=== PATIENT | female | born 1995 | race Caucasian/White ===

== ENCOUNTER 2022-06-28 04:49 | Inpatient (IN) | payer OTHER ==
[2022-06-28] MEDS ORDERED: BETAMET ACET-BETAMETH SOD PHOS 6 MG/ML MDV IM SCH (05:15)
[2022-06-28] MEDS ORDERED: TERBUTALINE 1 MG/ML VIAL SQ STA (05:26)
[2022-06-28] MEDS: LACTATED RINGERS 1,000 ML IV SCH ×3 (05:35→09:01)
[2022-06-28 05:47] LABS: Basophils % (A) 0 %; Eosinophils % (A) 0 %; HCT 34.2 % (34.0-46.0); HGB 12.3 gm/dL (11.4-16.0); Lymphocytes # (A) 1.3 k/uL (1.0-4.8); Lymphocytes % (A) 7 %; MCH 31.5 pg (25.0-35.0); MCHC 36.1 g/dL (31.0-37.0); MCV 87.3 fL (80.0-100.0); Mean Platelet Volume 8.5; Monocytes # (A) 0.9 k/uL (0-1.0); Monocytes % (A) 5 %; Neutrophils # (A) 14.8 k/uL (1.3-7.7); Neutrophils % (A) 85 %; Platelet Count 219 k/uL (150-450); RBC 3.92 m/uL (3.80-5.40); RDW 13.1 % (11.5-15.5); WBC 17.5 k/uL (3.8-10.6)
[2022-06-28] MEDS ORDERED: INDOMETHACIN 50MG SUPPOSITORY RECTAL ONE ×2 (06:12)
--- NOTE | 2022-06-28 06:27 | US ---
EXAMINATION TYPE: US OB >= 14 wk fetus DATE OF EXAM: 06/28/2022 COMPARISON: None CLINICAL HISTORY: contractionspreterm contractions. Pt states had anatomy scan yesterday and was told everything was normal. Pt was shaking during exam TECHNIQUE: Transabdominal (TA) GESTATIONAL AGE / DATING Physician Established: (23 weeks/0 days) EDC: 10/25/22 Dates by First Scan: No previous this is first scan Dates by Current Scan: (22 weeks/6 days) EDC: 10/26/22 Beta HCG (if available): N/A SURVEY IUP: Single PLACENTA: Posterior PREVIA: No Previa BRUCE: 12.8 cm Normal CERVICAL LENGTH (transabdominal: norm > 3.0cm): 2.7 cm BIOMETRY PRESENTATION: Vertex LIE: Longitudinal BPD: 5.6 cm 23 weeks / 2 days HC: 20.6 cm 22 weeks / 5 days AC: 19.5 cm 24 weeks / 1 days FL: 4.0 cm 23 weeks / 0 days ESTIMATED WEIGHT IN GRAMS: 6.4 grams ESTIMATED WEIGHT IN LBS/OZ: 1 lbs. 5 oz. WEIGHT PERCENTAGE BASED ON ESTABLISHED DATES: 69.6% HC/AC: 1.06 Normal FL/AC: 20.56 Normal HEART RATE: 159 bpm RHYTHM: Normal Single live intrauterine gestation. No placenta previa. Estimated amniotic fluid index within normal limits. Biometry measurements congruent and within normal limits. Thinning of the cervix noted. Sunita l cephalad presentation. IMPRESSION: As above. Thinning of the cervix suggestive of labor noted.
[2022-06-28] MEDS ORDERED: MAGNESIUM SULFATE GM 6 GM in SODIUM CHLORIDE 0.9% 100 ML IVPB ONE (06:30)
[2022-06-28] MEDS ORDERED: MAGNESIUM SULFATE-WATER PMX 20 GM in WATER FOR INJECTION 1 500ML.BAG IV SCH (06:30)
--- NOTE | 2022-06-28 07:13 | P.HPOB ---
History of Present Illness H&P Date: 06/28/22 Chief Complaint: Strong regular uterine contractions, vaginal bleeding This is a 27-year-old female 3 para 0202 EDC 10/25/2022 at 23 weeks gestation. Patient presented to labor and delivery this morning with a complaint of strong regular painful uterine contractions. She states light cramping began last night at 1800 hrs., increased at 2300 hrs., very intense at 0200 hrs. with light vaginal bleeding. She then presented to triage area. Cervix was checked and noted to be 1-2 cm dilated, approximately 50% effaced, vertex presentation. Terbutaline was given 0.25 mg times to 15 minutes apart with no improvement. Therefore magnesium sulfate 6 g loading dose was started. Betamethasone was given. Plan was to stabilize patient and then transfer. Past medical history is essentially negative. Past surgical history significant for perforated IUD requiring surgery in September 2017. Medications vitamins daily, Lincoln injections every week, last given yesterday at her physician's office, Dr. Luis Heart who works out of [employer]. Social history patient is single, positive marijuana use, most recently 2 days ago. She is employed at a local [employer]. She denies tobacco alcohol or other drug use. ALLERGIES to bee stings. Past obstetric history vaginal delivery 2013 at 32 weeks' gestation, male infant, 5 lbs. 1 oz. Vaginal delivery 2017, male , 36 weeks' gestation, 7 lbs. 6 oz. Family history essentially negative. On exam patient is 5 foot 6 inches, 135 pounds, vital signs were stable and patient is afebrile. Uterine contractions every 1-2 minutes apart very strong intensity. Hemoglobin 12.3, WBCs 17.5. Chest is clear in all burton. Extremities reveal no edema. Patient is in active labor despite terbutaline g iven x2, followed by 6 g loading dose of magnesium sulfate. Steroids were also given 1. Impression: Active labor at 23 weeks gestation, despite tocolyse's. Plan likely premature delivery. Review of Systems Constitutional: Reports as per HPI Past Medical History History of Any Multi-Drug Resistant Organisms: None Reported Smoking Status: Never smoker Medications and Allergies Home Medications Medication Instructions Recorded Confirmed Type Hydroxyprogesterone Caproat/Pf 275 mg SQ WEEKLY 06/28/22 06/28/22 History [[place] 275 mg/1.1 ml Autoinjct] Vit No.179/Iron/Folic 1 each PO 06/28/22 History [ Tablet] Allergies Allergy/AdvReac Type Severity Reaction Status Date / Time bee venom protein (honey bee) Allergy Anaphylaxis Verified 06/28/22 04:52 Exam Intake and Output 06/27/22 06/28/22 06/28/22 22:59 06:59 14:59 Other: Weight 61.235 kg See dictated history and physical Results Result Diagrams: 06/28/22 05:15 Abnormal Lab Results - Last 24 Hours (Table) 06/28/22 Range/Units 05:15 WBC 17.5 H (3.8-10.6) k/uL Neutrophils # 14.8 H (1.3-7.7) k/uL Assessment and Plan Assessment: 23 week intrauterine , active labor despite tocolyse's. Betamethasone given 1. Plan: While attempting to reach Dr. Luis Heart at [facility], patient had spontaneous amniorrhexis in triage. Vaginal delivery has occurred. Please see separately dictated vaginal delivery note. Time with Patient: Greater than 30
[2022-06-28] MEDS ORDERED: HYDROCORTISONE 2.5% RECTAL CREAM 30 GM TUBE RECTAL PRN (07:21)
[2022-06-28] MEDS ORDERED: ACETAMINOPHEN TAB 325 MG TAB PO PRN (07:21)
[2022-06-28] MEDS ORDERED: diphenhydrAMINE 50 MG CAP PO PRN (07:21)
[2022-06-28] MEDS ORDERED: ZOLPIDEM 5 MG TAB PO PRN (07:21)
[2022-06-28] MEDS ORDERED: diphenhydrAMINE ELIXIR 25 MG/10 ML CUP PO PRN (07:21)
[2022-06-28] MEDS ORDERED: LANOLIN CREAM 5 GM TUBE TOPICAL PRN (07:21)
[2022-06-28] MEDS ORDERED: BENZOCAINE/MENTHOL SPRAY 1 GM/SPRAY AEROSOL TOPICAL PRN (07:21)
[2022-06-28] MEDS ORDERED: diphenhydrAMINE 50 MG/ML 1 ML VIAL IVP PRN ×2 (07:21)
[2022-06-28] MEDS ORDERED: SIMETHICONE 80 MG CHEWABLE PO PRN (07:21)
[2022-06-28] MEDS ORDERED: diphenhydrAMINE 25 MG CAP PO PRN (07:21)
--- NOTE | 2022-06-28 07:21 | P.PROBDLV ---
Vaginal Delivery Note - . Vaginal Delivery Note: This is a 27-year-old female 3 para 0202 EDC 10/25/2022 at 23 weeks gestation who presented early this morning to the triage area with strong regular uterine contractions. She has been receiving Gilford shots weekly with her primary care physician. She had intercourse approximately 36 hours ago. She denies any other symptomatology, no fevers shakes or chills, no recent infections or medical issues. Please see my dictated history and physical for details. Initially patient was noted to be 1-2 cm dilated, 50% effaced, -2 station, vertex. IV fluids were given. Terbutaline 2 doses with no effect. Magnesium 6 g loading dose was then instituted. Labs returned with a hemoglobin of 12.3, WBCs 17.5. Bedside ultrasound revealed cervical length of 2.8 cm, posterior placenta, BRUCE 12.8, viable vertex davis. Betamethasone was given. While be 6 g of magnesium sulfate were being infused, patient had spontaneous amniorrhexis with meconium-stained fluid at 0650 hours. Patient had an uncontrollable urge to push and crowned a male infant at 0651 anahi rs. Patient delivered the infant rapidly in the triage area. Initial heart rate 80. scores to be determined. Umbilical cord was doubly clamped and ligated. had no respiratory effort. He was placed on the maternal chest. Placenta delivered at 0654 hours, intact, no malodorous fluid. Vaginal vault is inspected, clean and dry, no lacerations or defects. Total estimated blood loss 200 mL's. Engineering Supervisor now at the bedside evaluating the . At time of this dictation it appears as if the score is 0. Spiritual counseling is provided. Begin care.
[2022-06-28 07:57] VITALS: RESP 18
[2022-06-28] MEDS ORDERED: SENNOSIDES-DOCUSATE SODIUM 1 EACH TAB PO SCH (08:00)
[2022-06-28] MEDS: IBUPROFEN 600 MG TAB PO SCH ×2 (08:47→14:38)
[2022-06-28] MEDS ORDERED: Rhogam IMMUNE GLOBULIN 1,500 UNIT/1 ML IM ONE ×3 (10:26→13:14)
[2022-06-28 14:32] VITALS: BP 105/67; PULSE 76; TEMP 98.1
[2022-06-28 14:40] LABS: Amphetamine Screen,Urine Not Detected (NotDetected); Barbiturate Screen,Urine Not Detected (NotDetected); Benzodiazepines Screen,Urine Not Detected (NotDetected); Cocaine Screen,Urine Not Detected (NotDetected); Methadone Screen, Urine Not Detected (NotDetected); Opiate Screen,Urine Not Detected (NotDetected); Oxycodone Screen, Urine Not Detected (NotDetected); Phencyclidine Screen,Urine Not Detected (NotDetected); Tricyclic Antidepressant,Urine Not Detected (NotDetected); Urn Cannabinoid Scrn Detected (NotDetected)
--- NOTE | 2022-06-29 04:55 | DS ---
DISCHARGE SUMMARY HISTORY OF PRESENT ILLNESS/HOSPITAL COURSE: This is a 27-year-old female, 3, para 0-2-0-2, EDC 10/25/2022 at 23 weeks gestation, who presented in the early childhood education coordinator hours in active spontaneous labor. Betamethasone was given, terbutaline given x2 doses, and then 6 g of magnesium sulfate given for tocolysis. Despite this, the patient went on to deliver quickly a live-born male . weighed 1 pound 2.3 ounces, 520 g. He had scores of 3, 2, and 1 at 1, 5, and 10 minutes respectively. Unfortunately, due to immature lung development, the infant did . The patient was allowed to pillai with her and grieve. Please see my dictated delivery note as well as history and physical notes for details. The patient is followed by Dr. Luis Heart from [facility] as well as Dr. Luis Osorio, Maternal Medicine, for her history of deliveries in the past x2. She had just received Muddy the day before admission, seen in her physician's office, and was said to have a normal ultrasound as well. Regardless, the patient at this point is doing well. Her bleeding is minimal. The perineal body is clean and dry, no lacerations or defects. She has been given pictures, footprints, and other momentos of her son. Spiritual assistance has been offered and declined. The patient is requesting discharge home. She is judged to be in good condition for discharge home and has good family support. I have reminded her no intercourse, tampons, or douching. Clean pad. Continue vitamin daily. Use [id number] Motrin or Aleve as needed for pain. She will follow up with Dr. Luis Heart in 2 weeks. I have asked her to call me with any fever, shakes or chills, foul-smelling or copious lochia with the passage of large blood clots, with any pain not alleviated by [id number] products, or indeed with any concerns. MMODL / IJN: [id number] /
== END 2022-06-28 15:55 | disposition home or self-care (01) | DRG 805 ==
LOC: FBPOP 04:49 → 4FBP 07:04
PROVIDERS: ADMIT Obstetrics & Gynecology; ATTEND Obstetrics & Gynecology
PROC: 10E0XZZ Delivery of Products of Conception, External Approach (ICD-10-PCS; principal; 2022-06-28)
PROC: 4A0HXCZ Measurement of Products of Conception, Cardiac Rate, External Approach (ICD-10-PCS; 2022-06-28)
DX: O42.012 Preterm premature rupture of membranes, onset of labor within 24 hours of rupture, second trimester (principal); O60.12X0 Preterm labor second trimester with preterm delivery second trimester, not applicable or unspecified; Z37.0 Single live birth; O99.324 Drug use complicating childbirth; O62.3 Precipitate labor; Z37.1 Single stillbirth; O35.8XX0 Maternal care for other (suspected) fetal abnormality and damage, not applicable or unspecified; O77.0 Labor and delivery complicated by meconium in amniotic fluid; F12.90 Cannabis use, unspecified, uncomplicated; Z91.030 Bee allergy status; Z3A.23 23 weeks gestation of pregnancy
CPT/HCPCS: 36415; 76805; 80306; 82731; 84112; 85025; 86850; 86900; 86901; 96361; 96365; 99215